=== PATIENT | male | born 1940 | race Caucasian/White ===

== ENCOUNTER → 2016-08-28 | Outpatient (CLI) | payer MEDICARE, BC ==
[~2016-08-28] MED LIST: BETAPACE 80MG80 MG PO; CEPHALEXIN500 M1 PO; CORDARONE200 MG/TAB PO; COUMADIN 2MG2 MG/TAB PO; COUMADIN 5MG5 MG/TAB PO; COUMADIN4 MG PO; DOCUSATE SODIU100 MG PO; FLOMAX 0.40.4 MG/CAP PO; FLONASEALLERGY NS; HCTZ 25MG TAB25 MG PO; LIPITOR 10MG10 MG PO; MIRALAX PA17 GM/Dose PO; MULTIPLE VITAMI1 CAP PO; MVI; OSTEO BIFLEX; PACERONE400 MG PO; PRILOSEC10 MG PO; PRINIVIL10 MG PO; PROSCAR 5MG5 MG PO; SYNTHROID0.075 MG/T PO; TYLENOL 325MG325 MG PO; [UNRECOGNIZED DRUG - OTHER]; [UNRECOGNIZED DRUG - OTHER]
[2016-08-28 12:59] LABS: HEMATOCRIT 42.6 % (42.0-52.0); HEMOGLOBIN 14.7 g/dl (13.5-18.0); MEAN CELL VOLUME 100 fl (80.0-100.0); MEAN CORPUSCULAR HEMOGLOBIN 34 pg (27.0-31.0); MEAN CORPUSCULAR HGB CONC 35 g/dl (33.0-37.0); MEAN PLATELET VOLUME 9.6 fl (7.4-10.4); PLATELET COUNT 143 K/mm3 (130-400); RED BLOOD COUNT 4.28 M/mm3 (4.20-5.60); REDCELL DISTRIBUTION WIDTH-CV 12.9 % (11.5-14.5)
[2016-08-28 13:37] LABS: ERYTHROCYTE SEDIMENTATION RATE 8 mm/hr (0-30)
== END ==
LOC: COL.LAB 12:12
PROVIDERS: Orthopaedic Surgery
DX: M25.561 Pain in right knee (principal)

== ENCOUNTER → 2016-08-28 | Outpatient (CLI) | payer MEDICARE, BC | LOC: COL.RAD 07:26 | DX: M25.552 Pain in left hip (principal); M25.551 Pain in right hip | CPT/HCPCS: G0260; J3301 ==

== ENCOUNTER → 2016-10-03 | Outpatient (CLI) | payer MEDICARE, BC | LOC: COL.RAD 14:08 | DX: M25.552 Pain in left hip (principal); M25.551 Pain in right hip; M16.0 Bilateral primary osteoarthritis of hip | CPT/HCPCS: J3301; Q9967 ==

== ENCOUNTER 2016-11-28 19:26 | Inpatient (IN) | payer MEDICARE, BC ==
[~2016-11-28] VITALS: Ht 182.9 cm; Wt 123.7 kg
[~2016-11-28 19:26] MED LIST changes: -COUMADIN 2MG2 MG/TAB PO; -SYNTHROID0.075 MG/T PO
[2016-12-11 08:42] VITALS: BP 97/58; PULSE 84; TEMP 97.7
[2016-12-11] MEDS ORDERED: COUMADIN 2MG2 MG/TAB PO (09:27)
[2016-12-11] MEDS ORDERED: SYNTHROID0.075 MG/T PO (09:28)
[2016-12-11 10:41] LABS: BASO # 0.1 (0.0-0.2); BASO % 0.6 % (0.0-2.0); EOS # 0.3 (0.0-0.7); EOS % 4.2 % (0-4.0); GRAN # 6.3 (1.4-6.5); GRAN % 77.2 % (42.2-75.2); HEMOGLOBIN 12.7 g/dl (13.5-18.0); LYMPH % 11.7 % (20.0-51.0); MEAN CELL VOLUME 101 fl (80.0-100.0); MEAN CORPUSCULAR HEMOGLOBIN 35 pg (27.0-31.0); MEAN CORPUSCULAR HGB CONC 35 g/dl (33.0-37.0); MEAN PLATELET VOLUME 9.4 fl (7.4-10.4); MONO # 0.5 (0.1-0.6); MONO % 5.9 % (1.7-9.3); PLATELET COUNT 133 K/mm3 (130-400); RED BLOOD COUNT 3.66 M/mm3 (4.20-5.60); REDCELL DISTRIBUTION WIDTH-CV 13.2 % (11.5-14.5); WHITE BLOOD COUNT 8.1 K/mm3 (4.8-10.8)
[2016-12-11 10:44] LABS: HEMATOCRIT 36.8 % (42.0-52.0); INR 1.7 (0.8-3.0); PROTHROMBIN TIME 19.7 SECONDS (9.7-12.8)
[2016-12-11 11:00] LABS: ADJUSTED CALCIUM 8.7 mg/dL (8.4-10.2); ALBUMIN 3.6 gm/dL (3.5-5.0); BILIRUBIN,TOTAL 0.8 mg/dL (0.0-1.0); CALCIUM 8.4 mg/dL (8.4-10.2); CREATININE, serum 1.03 mg/dL (0.66-1.25); MAGNESIUM 2.1 mg/dL (1.6-2.3); POTASSIUM 4.1 mmol/L (3.4-5.0); TOTAL PROTEIN 6.2 gm/dL (6.4-8.2)
[2016-12-11 11:32] VITALS: BP 119/75; PULSE 82; TEMP 97.6
[2016-12-11 15:23] VITALS: BP 72/54; BP 84/59; PULSE 70; TEMP 98.9
[2016-12-11 19:16] VITALS: BP 92/63; PULSE 72; TEMP 98.5
[2016-12-11 22:54] VITALS: BP 125/78; PULSE 76; TEMP 98.8
[2016-12-12 02:43] VITALS: BP 104/61; PULSE 76; TEMP 98.3
[2016-12-12 06:30] LABS: BASO # 0.1 (0.0-0.2); BASO % 0.8 % (0.0-2.0); EOS # 0.5 (0.0-0.7); EOS % 6.5 % (0-4.0); GRAN # 5.7 (1.4-6.5); GRAN % 72.9 % (42.2-75.2); HEMATOCRIT 37.2 % (42.0-52.0); HEMOGLOBIN 12.6 g/dl (13.5-18.0); LYMPH # 1.1 (1.2-3.4); LYMPH % 13.8 % (20.0-51.0); MEAN CELL VOLUME 101 fl (80.0-100.0); MEAN CORPUSCULAR HEMOGLOBIN 34 pg (27.0-31.0); MEAN CORPUSCULAR HGB CONC 34 g/dl (33.0-37.0); MEAN PLATELET VOLUME 9.9 fl (7.4-10.4); MONO # 0.5 (0.1-0.6); MONO % 5.7 % (1.7-9.3); PLATELET COUNT 128 K/mm3 (130-400); RED BLOOD COUNT 3.67 M/mm3 (4.20-5.60); REDCELL DISTRIBUTION WIDTH-CV 13.2 % (11.5-14.5); WHITE BLOOD COUNT 7.9 K/mm3 (4.8-10.8)
[2016-12-12 06:33] LABS: INR 1.7 (0.8-3.0); PROTHROMBIN TIME 19.3 SECONDS (9.7-12.8)
[2016-12-12 06:37] LABS: CALCIUM 8.3 mg/dL (8.4-10.2); CREATININE, serum 0.93 mg/dL (0.66-1.25)
[2016-12-12 07:23] VITALS: BP 108/73; PULSE 69; TEMP 98.4
[2016-12-12 11:49] VITALS: BP 91/65; PULSE 72; TEMP 98
[2016-12-12 17:17] VITALS: BP 154/80; PULSE 74; TEMP 98
[2016-12-12 19:28] VITALS: BP 105/64; PULSE 78; TEMP 98
[2016-12-12 23:34] VITALS: BP 113/75; PULSE 79; TEMP 98.1
[2016-12-13 03:23] VITALS: BP 96/59; PULSE 75; TEMP 97.9
[2016-12-13 07:13] LABS: CALCIUM 8.4 mg/dL (8.4-10.2); CREATININE, serum 0.99 mg/dL (0.66-1.25); POTASSIUM 3.6 mmol/L (3.4-5.0)
[2016-12-13 07:16] LABS: INR 1.6 (0.8-3.0); PROTHROMBIN TIME 17.7 SECONDS (9.7-12.8)
[2016-12-13 08:45] VITALS: BP 100/62; PULSE 74; TEMP 97
[2016-12-13] MEDS ORDERED: BETAPACE 80MG80 MG PO (10:07)
== END 2016-12-13 11:30 | disposition home or self-care (01) | DRG 310 ==
LOC: MEDICAL 12-11 07:10
PROVIDERS: Internal Medicine Cardiovascular Disease
DX: I48.0 Paroxysmal atrial fibrillation (principal); G47.33 Obstructive sleep apnea (adult) (pediatric); I10 Essential (primary) hypertension; Z95.0 Presence of cardiac pacemaker
CPT/HCPCS: J7040; J7050

== ENCOUNTER → 2016-11-29 | Outpatient (CLI) | payer MEDICARE, BC ==
[~2016-11-29] MED LIST changes: +COUMADIN 2MG2 MG/TAB PO; +SYNTHROID0.075 MG/T PO
== END ==
LOC: COL.RAD 09:30
DX: M25.552 Pain in left hip (principal)
CPT/HCPCS: J3301; Q9967

== ENCOUNTER → 2017-04-30 | Outpatient (CLI) | payer MEDICARE, BC | LOC: WCC 08:21 | DX: S41.102A Unspecified open wound of left upper arm, initial encounter (principal); Z79.02 Long term (current) use of antithrombotics/antiplatelets | CPT/HCPCS: 17717; 27510; A6197; A6212; G0463 ==

== ENCOUNTER → 2017-05-07 | Outpatient (CLI) | payer MEDICARE, BC | LOC: WCC 09:44 | DX: S41.112A Laceration without foreign body of left upper arm, initial encounter (principal); Z79.01 Long term (current) use of anticoagulants | CPT/HCPCS: G0463 ==

== ENCOUNTER 2017-10-01 11:45 | Outpatient (RCR) | payer MEDICARE, BC | END 2017-10-04 | disposition home or self-care (01) | LOC: WSPT | DX: M54.5 Low back pain (principal); G89.29 Other chronic pain | CPT/HCPCS: G0283-GP; G8978-GP; G8979-GP ==

== ENCOUNTER 2017-11-05 10:45 | Outpatient (RCR) | payer MEDICARE, BC | END 2018-01-03 | disposition home or self-care (01) | LOC: WSPT | DX: M54.5 Low back pain (principal); G89.29 Other chronic pain ==

== ENCOUNTER 2018-07-11 07:29 | Inpatient (IN) | payer MEDICARE, BC ==
[~2018-07-11] VITALS: Ht 182.9 cm; Wt 130.0 kg
[2018-07-11] VITALS (11 sets, daily range): BP systolic 129–153; BP diastolic 85–101; PULSE 69–87; TEMP 96.9–98.2
[2018-07-11 08:29] LABS: HEMATOCRIT 42.5 % (42.0-52.0); HEMOGLOBIN 14.3 g/dl (13.5-18.0); MEAN CELL VOLUME 98 fl (80.0-100.0); MEAN CORPUSCULAR HEMOGLOBIN 33 pg (27.0-31.0); MEAN CORPUSCULAR HGB CONC 34 g/dl (33.0-37.0); MEAN PLATELET VOLUME 9.5 fl (7.4-10.4); PLATELET COUNT 153 K/mm3 (130-400); RED BLOOD COUNT 4.36 M/mm3 (4.20-5.60); REDCELL DISTRIBUTION WIDTH-CV 12.3 % (11.5-14.5)
[2018-07-11 08:38] LABS: CALCIUM 8.6 mg/dL (8.4-10.2); CREATININE, serum 0.8 mg/dL (0.66-1.25); POTASSIUM 4.2 mmol/L (3.4-5.0)
[2018-07-11] MEDS ORDERED: TYLENOL 8 HR PO (08:50)
[2018-07-11] MEDS ORDERED: B-121000 MCG PO (08:56)
[2018-07-12] VITALS (7 sets, daily range): BP systolic 115–140; BP diastolic 71–93; PULSE 68–76; TEMP 97.5–99.1
[2018-07-12 05:47] LABS: INR 2.5 (0.8-3.0); PROTHROMBIN TIME 28.2 SECONDS (9.7-12.8)
[2018-07-12 05:50] LABS: CALCIUM 8.6 mg/dL (8.4-10.2); CREATININE, serum 0.81 mg/dL (0.66-1.25); MAGNESIUM 2.1 mg/dL (1.6-2.3); POTASSIUM 4.3 mmol/L (3.4-5.0)
[2018-07-13 05:06] VITALS: BP 124/85; PULSE 73; TEMP 98.5
[2018-07-13 07:39] VITALS: BP 108/38; BP 132/75; PULSE 68; TEMP 98
[2018-07-13 08:15] LABS: CALCIUM 8.8 mg/dL (8.4-10.2); CREATININE, serum 0.85 mg/dL (0.66-1.25); POTASSIUM 4.2 mmol/L (3.4-5.0)
[2018-07-13 08:18] LABS: INR 2.4 (0.8-3.0); PROTHROMBIN TIME 27.6 SECONDS (9.7-12.8)
[2018-07-13] MEDS ORDERED: TIKOSYN0.25 MG PO (10:35)
[2018-07-13] MEDS ORDERED: DEMADEX10 MG PO (10:38)
== END 2018-07-13 11:42 | disposition home or self-care (01) | DRG 310 ==
LOC: COL.CAR 07:29 → ICU 09:44 → COL.CAR 12:59 → ICU 12:59 → COL.CAR 07-12 09:14 → ICU 07-12 09:14 → COL.CAR 07-12 09:15 → ICU 07-12 09:15 → MEDICAL 07-12 11:11 → ICU 07-12 11:11 → MEDICAL 07-12 11:45 → COL.CAR 07-30 07:45
PROVIDERS: Internal Medicine Cardiovascular Disease; Nurse Practitioner
PROC: 5A2204Z Restoration of Cardiac Rhythm, Single (ICD-10-PCS; principal; 2018-07-11)
DX: I48.0 Paroxysmal atrial fibrillation (principal); Z95.0 Presence of cardiac pacemaker; Z85.828 Personal history of other malignant neoplasm of skin; I10 Essential (primary) hypertension; E78.5 Hyperlipidemia, unspecified; K21.9 Gastro-esophageal reflux disease without esophagitis; I87.2 Venous insufficiency (chronic) (peripheral); Z79.01 Long term (current) use of anticoagulants
CPT/HCPCS: OP; G0378; G0379; J2704; J3475

== ENCOUNTER 2018-09-09 06:47 | Day surgery (SDC) | payer MEDICARE, BC ==
[~2018-09-09] VITALS: Ht 183 cm; Wt 124.4 kg
[~2018-09-09 06:47] MED LIST changes: +B-121000 MCG PO; +COUMADIN 1MG1 MG/TAB PO; -COUMADIN4 MG PO; +DEMADEX10 MG PO; +TIKOSYN0.25 MG PO; +TYLENOL 8 HR PO
[2018-09-09 07:42] LABS: HEMATOCRIT 42.7 % (42.0-52.0); HEMOGLOBIN 14.8 g/dl (13.5-18.0); MEAN CELL VOLUME 96 fl (80.0-100.0); MEAN CORPUSCULAR HEMOGLOBIN 33 pg (27.0-31.0); MEAN CORPUSCULAR HGB CONC 35 g/dl (33.0-37.0); MEAN PLATELET VOLUME 9.3 fl (7.4-10.4); PLATELET COUNT 133 K/mm3 (130-400); RED BLOOD COUNT 4.44 M/mm3 (4.20-5.60)
[2018-09-09 07:44] LABS: INR 2.3 (0.8-3.0); PROTHROMBIN TIME 26.7 SECONDS (9.7-12.8)
[2018-09-09 07:49] LABS: CALCIUM 8.9 mg/dL (8.4-10.2); CREATININE, serum 0.91 mg/dL (0.66-1.25); POTASSIUM 4.1 mmol/L (3.4-5.0)
[2018-09-09] MEDS ORDERED: TIKOSYN0.25 MG PO (07:54)
[2018-09-09] MEDS ORDERED: DEMADEX10 MG PO (07:55)
[2018-09-09] MEDS ORDERED: ZESTRIL 5MG5 MG PO (08:09)
[2018-09-09 08:15] VITALS: BP 141/89; PULSE 70; TEMP 98.3
[2018-09-09 09:25] VITALS: BP 118/81; PULSE 90
[2018-09-09 09:30] VITALS: BP 127/79; PULSE 90
[2018-09-09 09:45] VITALS: BP 131/93; PULSE 89
[2018-09-09 10:00] VITALS: BP 136/97; PULSE 90
[2018-09-09 10:15] VITALS: BP 140/94; PULSE 89
--- NOTE | 2018-09-09 10:45 | NUR ---
Discharge instructions given to pt.Pt verbalizes understanding.INT removed,catheter tip intact.Pt escortedout via wheelchair by this nurse.
== END 2018-09-09 11:03 | disposition home or self-care (01) ==
LOC: COL.CAR 06:47
PROVIDERS: Internal Medicine Cardiovascular Disease
DX: I48.91 Unspecified atrial fibrillation (principal); Z79.01 Long term (current) use of anticoagulants; Z79.899 Other long term (current) drug therapy; I10 Essential (primary) hypertension; Z95.0 Presence of cardiac pacemaker; G47.33 Obstructive sleep apnea (adult) (pediatric); G62.9 Polyneuropathy, unspecified; E03.9 Hypothyroidism, unspecified; N40.0 Benign prostatic hyperplasia without lower urinary tract symptoms; Z85.828 Personal history of other malignant neoplasm of skin; Z96.653 Presence of artificial knee joint, bilateral; E78.5 Hyperlipidemia, unspecified; E66.9 Obesity, unspecified; Z68.39 Body mass index [BMI] 39.0-39.9, adult; I87.2 Venous insufficiency (chronic) (peripheral)
CPT/HCPCS: J2704; J7030

== ENCOUNTER 2019-05-06 09:30 | Outpatient (RCR) | payer MEDICARE, BC ==
[~2019-05-06 09:30] MED LIST changes: +ZESTRIL 5MG5 MG PO
== END 2019-05-11 | disposition home or self-care (01) ==
LOC: WSPT
DX: R26.89 Other abnormalities of gait and mobility (principal)

== ENCOUNTER → 2020-03-04 | Outpatient (CLI) | payer MEDICARE, BC | LOC: COL.RAD 07:37 | DX: M48.02 Spinal stenosis, cervical region (principal) ==

== ENCOUNTER 2020-06-01 10:45 | Outpatient (RCR) | payer MEDICARE, BC | END 2020-06-14 | disposition home or self-care (01) | LOC: WSPT | DX: M48.02 Spinal stenosis, cervical region (principal); M89.49 Other hypertrophic osteoarthropathy, multiple sites ==

== ENCOUNTER 2021-07-20 09:00 | Outpatient (RCR) | payer MEDICARE, BC | END 2021-07-22 | disposition home or self-care (01) | LOC: PT.GENESIS | DX: M19.90 Unspecified osteoarthritis, unspecified site (principal); Z98.890 Other specified postprocedural states ==

== ENCOUNTER 2023-09-18 06:57 | Day surgery (SDC) | payer MEDICARE, BC ==
[~2023-09-18] VITALS: Ht 185.4 cm; Wt 106.7 kg
[2023-09-18] VITALS (89 sets, daily range): BP systolic 112–133; BP diastolic 73–88; PULSE 68–70; TEMP 96.9; O2SAT 92–99
[2023-09-18] MEDS ORDERED: ceFAZolin 1 G in Water For Injection,Sterile 10 ML IV SCH (07:30)
[2023-09-18] MEDS ORDERED: 1/2 NS 1,000 ML IV SCH (07:30)
[2023-09-18 07:57] LABS: HEMATOCRIT 40.1 % (42.0-52.0); HEMOGLOBIN 13.5 g/dl (13.5-18.0); MEAN CELL VOLUME 100 fl (80.0-100.0); MEAN CORPUSCULAR HEMOGLOBIN 34 pg (27-31); MEAN CORPUSCULAR HGB CONC 34 g/dl (33.0-37.0); MEAN PLATELET VOLUME 9.6 fl (7.4-10.4); PLATELET COUNT 157 K/mm3 (130-400); RED BLOOD COUNT 4.02 M/mm3 (4.20-5.60); REDCELL DISTRIBUTION WIDTH-CV 13.1 % (11.5-14.5)
[2023-09-18 08:11] LABS: INR 1.3 (0.8-3.0); PROTHROMBIN TIME 13.5 SECONDS (9.7-12.8)
[2023-09-18 08:14] LABS: CALCIUM 9.3 mg/dL (8.4-10.2); CREATININE, serum 0.88 mg/dL (0.72-1.25); POTASSIUM 4.2 mmol/L (3.5-4.5)
[2023-09-18] MEDS ORDERED: FLONASEALLERGY NS (08:23)
[2023-09-18] MEDS ORDERED: DITROPAN 5MG TAB5 MG PO (08:26)
[2023-09-18] MEDS ORDERED: OXYGEN (08:27)
[2023-09-18] MEDS ORDERED: TRIAMCINOLONE A15 G3 TP (08:34)
[2023-09-18] MEDS ORDERED: ZYRTEC 10MG10 MG PO (08:35)
[2023-09-18] MEDS ORDERED: ANTIVERT 25MG25 MG PO (08:35)
--- NOTE | 2023-09-18 09:50 | NUR ---
Please see merge documentation for record of interventions, vitals and medications administered during generator change.
[2023-09-18] MEDS ORDERED: Midazolam 2 MG/2 ML VIAL IV SCH (09:54)
[2023-09-18] MEDS ORDERED: fentaNYL 50 MCG/ML 2 ML VIAL IV SCH (09:55)
[2023-09-18] MEDS ORDERED: ceFAZolin 2 G in Water For Injection,Sterile 20 ML IV SCH (10:00)
[2023-09-18] MEDS ORDERED: NS 1,000 ML IV.SOLN. IR SCH (10:11)
[2023-09-18] MEDS ORDERED: CEPHALEXIN500 M1 PO (13:11)
--- NOTE | 2023-09-18 13:30 | NUR ---
Discharge instructions given to pt.Pt verbalizes understanding.Pt escorted out via wheelchair by this nurse.
== END 2023-09-18 14:02 ==
LOC: COL.CAR 06:57
PROVIDERS: Internal Medicine Cardiovascular Disease
DX: Z45.010 Encounter for checking and testing of cardiac pacemaker pulse generator [battery] (principal); I48.20 Chronic atrial fibrillation, unspecified; E66.01 Morbid (severe) obesity due to excess calories; G47.30 Sleep apnea, unspecified; E78.5 Hyperlipidemia, unspecified; Z99.81 Dependence on supplemental oxygen; Z68.37 Body mass index [BMI] 37.0-37.9, adult
CPT/HCPCS: C1785; J0665-JZ; J0690; J2250; J3010; J7030